=== PATIENT | female | born 1940 | race African-American/Black ===

== ENCOUNTER → 2016-04-01 | Emergency (ER) | payer OTHER ==
[~2016-04-01] MED LIST: SODIUM CHLORIDE 500 ML IV STA
[2016-04-01 21:33] VITALS: BMI 37.3
[2016-04-01 22:57] LABS: BASOPHIL 1.4 % (0-2.0); EOSINOPHIL 4.3 % (0-4.5); MCH 25.1 pg (25.7-33.7); MCHC 32.3 g/dl (32.0-36.0); MEAN CELL VOLUME 77.6 fl (80-96); MEAN PLT VOLUME 9.1 fl (7.5-11.1); NEUTROPHILS 42.3 % (42.8-82.8); PLATELET COUNT 195 K/MM3 (134-434); RDW 15.4 % (11.6-15.6); WHITE BLOOD COUNT 4.8 K/mm3 (4.0-10.0)
[2016-04-01 23:08] LABS: INR 1.09 (0.82-1.09)
--- NOTE | 2016-04-01 23:10 | PDOC ---
History of Present Illness - General Chief Complaint: Injury Stated Complaint: INJURY Time Seen by Provider: 04/01/16 22:00 History Source: Patient Exam Limitations: No Limitations - History of Present Illness Initial Comments: 04/01/16 23:05 75yo Female patient presents to ED with daughter c/o head injury sustained after fall around 2pm today. Patient states she was locking her door, as she turned around she became dizzy, fell and hit her head against door frame. She denies LOC or Neck pain. Associated hematoma to forehead. Patient was assisted up by her 96yo Mother. When patient daughter came home, she presented mother to ER for evaluation. Patient denies n/v/d, fever, CP, back pain, neck pain, diff breathing, cough, congestion, dysuria, hematuria, or any other complaints at this time. Occurred: reports: this evening Severity: reports: moderate Pain Location: reports: head. denies: none, abdomen, back, chest, face, lower extremity, mouth, neck, other, pelvis, upper extremity Method of Injury: Yes: fall. No: unknown, assault, direct blow, motor vehicle crash, other Modifying Factors: improves with: cold therapy. worse with: None, immobilization, pain medication, rest, other Loss of Consciousness: no loss of consciousness Associated Symptoms (Fall): other (Hematoma) Past History - Travel Traveled outside of the country in the last 30 days: No Close contact w/someone who was outside of country & ill: No - Past Medical History Allergies/Adverse Reactions: Allergies Allergy/AdvReac Type Severity Reaction Status Date / Time aspirin Allergy Verified 04/01/16 21:30 Home Medications: Ambulatory Orders Unobtainable [Unobtainable] 04/01/16 HTN: Yes - Psycho/Social/Smoking Cessation Hx Suicidal Ideation: No Smoking History: Never smoked Have you smoked in the past 12 months: No Information on smoking cessation initiated: No Hx Alcohol Use: No Drug/Substance Use Hx: No Trauma Specific PMHX - Complaint Specific PMHX Arthritis: No Back Injury: No Neck Injury: No Hx Sacro Iliac Joint Dysfunction: No Review of Systems - Review of Systems Able to Perform ROS?: Yes Is the patient limited Fijian proficient: No Constitutional: No: Chills, Fever HEENTM: No: Blurred Vision, Recent change in vision, Double Vision, Nose Pain Respiratory: No: Cough, Orthopnea, Shortness of Breath, SOB with Exertion, SOB at Rest, Stridor, Wheezing, Hemoptysis Cardiac (ROS): No: Chest Pain, Edema, Lightheadedness, Palpitations, Syncope, Chest Tightness ABD/GI: No: Diarrhea, Nausea, Poor Appetite, Poor Fluid Intake, Rectal Bleeding , Vomiting, Tarry Stools : No: Burning, Dysuria, Discharge, Flank Pain, Hematuria, Pain, Urgency Musculoskeletal: Yes: Other (Head Injury). No: Back Pain, Joint Pain, Neck Pain Integumentary: Yes: Bruising (Hematoma to forehead). No: Rash Neurological: Yes: Dizziness. No: Headache, Numbness, Paresthesia, Seizure, Tingling, Tremors, Weakness, Unsteady Gait, Ataxia All Other Systems: Reviewed and Negative *Physical Exam - Vital Signs Last Vital Signs Temp Pulse Resp BP Pulse Ox 97.4 F L 77 14 147/98 98 04/01/16 21:31 04/01/16 21:31 04/01/16 21:31 04/01/16 21:31 04/01/16 21:31 - Physical Exam General Appearance: Yes: Nourished, Appropriately Dressed. No: Apparent Distress, Mild Distress, Moderate Distress, Severe Distress HEENT: positive: EOMI, ALAN, Normal ENT Inspection, Normal Voice, Symmetrical, TMs Normal, Pharynx Normal. negative: Tonsillar Exudate, Tonsillar Erythema, Nasal Congestion, Rhinorrhea, TM Bulging, TM Dull, TM Erythema Neck: positive: Trachea midline, Supple. negative: Tender, Decreased range of motion, Stridor, Lymphadenopathy (R), Lymphadenopathy (L), Tender midline Respiratory/Chest: positive: Lungs Clear, Normal Breath Sounds. negative: Respiratory Distress, Accessory Muscle Use, Labored Respiration, Decreased Breath Sounds, Rhonchi, Stridor, Wheezing Cardiovascular: positive: Regular Rhythm, Regular Rate. negative: Edema, JVD, Murmur Gastrointestinal/Abdominal: positive: Normal Bowel Sounds, Soft, Distended. negative: Guarding, Rebound, Tenderness Musculoskeletal: positive: Normal Inspection. negative: CVA Tenderness Extremity: positive: Normal Capillary Refill, Normal Inspection, Normal Range of Motion, Pelvis Stable. negative: Tender, Pedal Edema, Swelling Integumentary: positive: Normal Color, Dry, Warm, Bruising (Large hematoma noted to forehead.). 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, Fully Oriented, Alert, Normal Mood/ Affect, Normal Response, Motor Strength 06/27 ED Treatment Course - LABORATORY CBC & Chemistry Diagram: 04/01/16 22:45 04/01/16 22:35 - ADDITIONAL ORDERS Additional order review: 04/01/16 22:45 RBC 4.49 MCV 77.6 L MCHC 32.3 RDW 15.4 MPV 9.1 Neutrophils % 42.3 L Lymphocytes % 39.2 Monocytes % 12.8 H Eosinophils % 4.3 Basophils % 1.4 - RADIOLOGY Radiology Studies Ordered: Category Date Time Status CERVICAL SPINE CT W/O CONTR [CT] Stat CT Scan 04/01/16 22:[address] WITHOUT CONTRAST [CT] Stat CT Scan 04/01/16 22:58 Ordered CHEST PA & LAT [RAD] Stat Radiology 04/01/16 22:24 Ordered Progress Note - Progress Note Progress Note: Patient feeling much better, and is asking to go home. Denies any other complaints at this time. *DC/Admit/Observation/Transfer Diagnosis at time of Disposition: Fall Qualifiers: Encounter type: initial encounter Qualified Code(s): W19.XXXA - Unspecified fall, initial encounter Head injury Qualifiers: Encounter type: initial encounter Qualified Code(s): S09.90XA - Unspecified injury of head, initial encounter - Discharge Dispostion Disposition: HOME Condition at time of disposition: Improved Admit: No - Referrals Referrals: Kayli Mcclendon MD [Staff Physician] - - Patient Instructions Additional Instructions: FOLLOW UP WITH YOUR PRIMARY CARE PROVIDER THIS WEEK. CALL TO SCHEDULE APPOINTMENT. IF YOU DO NOT HAVE A DOCTOR, CALL DR. MCCLENDON TO ESTABLISH CARE. RETURN IF ANY CONCERNS FOR FURTHER EVALUATION. Print Language: JAPANESE
[2016-04-01 23:12] LABS: ALBUMIN 3.3 g/dl (3.4-5.0); BILIRUBIN,TOTAL 0.4 mg/dL (0.2-1.0); CREATININE 1.1 mg/dL (0.55-1.02); TOT PROT 6.8 g/dl (6.4-8.2)
[2016-04-01 23:14] LABS: TROPONIN I 0.04 ng/ml (0.00-0.05)
[2016-04-02 00:55] LABS: URINE APPEARANCE CLEAR; URINE BILIRUBIN NEGATIVE (NEGATIVE); URINE BLOOD NEGATIVE (NEGATIVE); URINE COLOR LTYELLOW; URINE GLUCOSE (UA) NEGATIVE (NEGATIVE); URINE KETONE NEGATIVE (NEGATIVE); URINE NITRITE NEGATIVE (NEGATIVE); URINE PROTEIN NEGATIVE (NEGATIVE); URINE UROBILINOGEN NEGATIVE E.U./dl (0.2-1.0)
[2016-04-02 01:06] LABS: URINE LEUK ESTERASE 2+ (NEGATIVE)
[2016-04-02 01:13] LABS: URINE BACTERIA RARE /hpf (NONE SEEN); URINE MUCUS RARE; URINE RBC 1 /hpf (0-3); URINE WBC 3 /hpf (3-5)
[2016-04-02 01:40] VITALS: BP 138/84; PULSE 82; TEMP 98.3
--- NOTE | 2016-04-06 10:27 | EKG ---
Test Reason : Blood Pressure : / mmHG Vent. Rate : 064 BPM Atrial Rate : 064 BPM P-R Int : 214 ms QRS Dur : 084 ms QT Int : 398 ms P-R-T Axes : 060 -18 031 degrees QTc Int : 410 ms SINUS RHYTHM WITH 1ST DEGREE A-V BLOCK MINIMAL VOLTAGE CRITERIA FOR LVH, MAY BE NORMAL VARIANT NO PREVIOUS ECGS AVAILABLE Confirmed by ULICES RIOS MD ([id number]) on 04/06/2016 10:27:45 AM Referred By: Confirmed By:ULICES RIOS MD
== END | disposition home or self-care (01) ==
LOC: JER 21:27
PROC: 3E0337Z Introduction of Electrolytic and Water Balance Substance into Peripheral Vein, Percutaneous Approach (ICD-10-PCS; principal; 2016-04-01)
DX: S09.90XA Unspecified injury of head, initial encounter (principal); W18.30XA Fall on same level, unspecified, initial encounter; Y93.89 Activity, other specified; Y92.009 Unspecified place in unspecified non-institutional (private) residence as the place of occurrence of the external cause; I10 Essential (primary) hypertension
CPT/HCPCS: 36415; 70450-TC; 71020-TC; 72125-TC; 80053; 81003; 81015; 82550; 82553; 84484; 85025; 85610; 87086; 93005; 93010; 96360; 99283-25